=== PATIENT | female | born 1980 | race Hispanic/Latino ===

== ENCOUNTER 2025-01-01 09:34 | Emergency (ER) | payer OTHER, SELFPAY ==
[2025-01-01 09:57] VITALS: BP 113/65
[2025-01-01 10:18] VITALS: BP 126/81; BMI 21.3
[2025-01-01] MEDS: DILAUDID 0.5 MG IV (10:53)
--- NOTE | 2025-01-01 11:48 | ED.GENMED ---
History of Present Illness
General
Chief Complaint: Musculo-Skeletal Complaint
Time Seen by Provider: 01/01/25 10:34
History of Present Illness
History of Present Illness:
Note:
CHIEF COMPLAINT(S)
Dislocated second and third fingers.
HISTORY OF PRESENT ILLNESS
The patient is a 44-year-old female who presented with dislocated second and third fingers on her left hand, following an incident that occurred the previous night. The patient reported trying to sleep through the pain, hoping it would improve by
morning, but ultimately sought medical attention when the symptoms did not resolve. She described experiencing pain and anxiety secondary to the dislocations. On examination, there was noticeable swelling and pain upon manipulation, particularly
with the third finger, which was more challenging to reduce than the second. To address the pain and facilitate reduction, a local anesthetic was administered before attempting manual reduction. Post-reduction, a repeat X-ray was indicated to
confirm no fractures occurred during the reduction process.
PHYSICAL EXAM
- Musculoskeletal: Dislocated second and third digits on the left hand, with swelling and notable pain, particularly in the third finger. Reduction attempted with assisted traction and resistance measures.
- Nursing notes reviewed and vital signs reviewed.
PROBLEM LIST
- Acute:
1. Dislocated second and third fingers (left hand).
PLAN
1. Manual reduction of dislocated fingers, with a focus on alignment and stabilization.
2. Administer local anesthetic to reduce pain before attempting reduction.
3. Arrange for repeat X-ray to confirm proper alignment post-reduction and exclude fractures.
4. Apply a splint to protect the joints from recurrent dislocation, recommending a radial gutter splint as a possible [id number] option.
5. Advise the patient on care instructions for the splint, emphasizing the importance of keeping it dry, especially in anticipation of upcoming travel to [place].
6. Schedule follow-up appointment, ideally within the next day, to reassess the joint stability and determine the necessity and duration of the splint.
DIFFERENTIAL DIAGNOSIS
The Differential Diagnosis includes, in no particular order and is not limited to:
1. Finger dislocation
2. Sprain or ligament injury
3. Fracture of the phalanges
4. Soft tissue injury
5. Tenosynovitis
6. Osteoarthritis exacerbation
7. Rheumatoid arthritis
8. Tendon rupture
9. Contusion
10. Gout
Phy Exam
Physical Exam
Physical Exam:
.
Course
Orders/Labs/Results
Orders:
Orders
01/01/25 10:02
Hand, Left 3 View [CR Hand - Left Min 3 Views] Urgent
Comment:
Reason For Exam: fall
01/01/25 10:50
HYDROmorphone [Dilaudid] 0.5 mg .ROUTE .STK-MED ONE
01/01/25 10:51
HYDROmorphone [Dilaudid] 0.5 mg IV NOW STA
01/01/25 10:59
Hand, Left 2 View [CR Hand - Left 2 Views] Urgent
Comment:
Reason For Exam: left hand reduction
Vital Signs
Initial and Last Documented VS:
Initial Vital Signs
Pulse Resp BP Pulse Ox
91 20 113/65 99
01/01/25 09:57 01/01/25 09:57 01/01/25 09:57 01/01/25 09:57
Last Documented Vital Signs
Temp Pulse Resp BP Pulse Ox
98.5 F 86 20 126/81 99
01/01/25 10:18 01/01/25 10:18 01/01/25 10:18 01/01/25 10:18 01/01/25 10:18
MDM/Problems Addressed
MDM/Problems Addressed:
Reduction performed in a closed manner after hematoma block and parenteral opioids with good alignment achieved thereafter placed in a radial gutter splint and refer to Ortho for follow-up as an outpatient, supportive care and immobilization for the
next 3 to 5 days advised
*Pulse Oximetry
Patient hypoxic: no
Comment: 99%
*Critical Care Note
Total Time (30-74mins, 75-104mins- exclusive of procedures): Not Applicable
ED Attending Note
-
Portions of this chart may have been created with voice recognition software.� Occasional wrong word or��sound alike� substitutions may have occurred due to the inherent limitations of voice recognition software.
Discharge Plan
Departure
Patient Disposition: Home (Routine Discharge)
Date of Disposition: 01/01/25
Time of Disposition: 12:12
Patient with high blood pressure during this ER visit?: No
Discharge Problem:
Dislocation of metacarpophalangeal joint of left index finger, Dislocation of metacarpophalangeal joint of left middle finger, initial encounter
Instructions: Finger dislocation - Discharge instructions
Prescriptions:
No Action
No Current Medications
0
Referrals:
Noam Harrell MD [Active, Orthopedics]
Arsenio Gotti MD [Family Provider, Family Practice]
Activity Restrictions/Additional Instructions:
The splint except for the hand however the splint should be maintained consistently throughout the day and for sleep for 5 total days and then may be removed. Please follow-up with orthopedics when you return from your trip
Interventions
Interventions:
*Risk Screen - Suicide Last Done: 01/01/25 09:57
*General Assessment Last Done: 01/01/25 09:57
*Neglect/Abuse Screening Last Done: 01/01/25 09:57
*ED- Fall Risk Assessment Last Done: 01/01/25 10:18
*ED COVID-19 Vaccine History Last Done: 01/01/25 10:18
*Nursing Disposition Last Done: 01/01/25 12:24
ED-Musculoskeletal Assessment Last Done: 01/01/25 10:18
Discharge Date and Time
Discharge Date/Time: 01/01/25 12:25
Print Language: MONGOLIAN
== END 2025-01-01 12:25 | disposition home or self-care (01) ==
LOC: EMR 09:34
PROVIDERS: EMERGENCY PHYSICIAN Emergency Medicine; FAMILY PHYSICIAN Family Medicine
DX: S63.261A Dislocation of metacarpophalangeal joint of left index finger, initial encounter (principal); S63.263A Dislocation of metacarpophalangeal joint of left middle finger, initial encounter; X58.XXXA Exposure to other specified factors, initial encounter; F41.9 Anxiety disorder, unspecified
CPT/HCPCS: 99283; 26770 ×2; 96374; 73120; 73130